=== PATIENT | female | born 1960 | race Caucasian/White ===

== ENCOUNTER → 2023-11-16 15:55 | Outpatient (REF) | payer OTHER, SELFPAY | LOC: HWWDC 15:55 | PROVIDERS: ATTENDING PHYSICIAN Obstetrics & Gynecology; FAMILY PHYSICIAN Nurse Practitioner | DX: Z12.31 Encounter for screening mammogram for malignant neoplasm of breast (principal) | CPT/HCPCS: 77063; 77067 ==

== ENCOUNTER → 2024-11-19 15:19 | Outpatient (REF) | payer OTHER, SELFPAY | LOC: HWWDC 15:19 | PROVIDERS: REFERRING PHYSICIAN Obstetrics & Gynecology | DX: Z12.31 Encounter for screening mammogram for malignant neoplasm of breast (principal) | CPT/HCPCS: 77063; 77067 ==